=== PATIENT | male | born 1985 | race Caucasian/White ===

== ENCOUNTER → 2025-04-03 12:28 | Outpatient (CLI) | payer OTHER, SELFPAY ==
--- NOTE | 2025-04-03 12:34 | DI.RAD.S_ITS ---
PROCEDURE: XR KNEE RT 3V INDICATIONS: PAIN TECHNIQUE: 3 views of the knee were acquired. COMPARISON: None. FINDINGS: Bones: No fractures or dislocations. No suspicious bony lesions. Small osteophytes at the patellofemoral compartment. Large suprapatellar enthesophyte. Soft tissues: No joint effusion. No suspicious soft tissue calcifications. IMPRESSION: No acute bony abnormality or significant effusion. Suprapatellar enthesophytes. 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 Approved by: Yue Coyle M.D.,Ph.D. on 04/04/2025 at 1:31
--- NOTE | 2025-04-03 12:34 | DI.RAD.S_ITS ---
PROCEDURE: XR KNEE LT 3V INDICATIONS: PAIN TECHNIQUE: 3 views of the knee were acquired. COMPARISON: None. FINDINGS: Bones: No fractures or dislocations. No suspicious bony lesions. Small osteophytes in the patellofemoral compartment. Superior patellar enthesophytes. Soft tissues: No joint effusion. No suspicious soft tissue calcifications. IMPRESSION: No acute bony abnormality or significant effusion. Suprapatellar enthesophytes. Mild degenerative changes of the patellofemoral compartment. Approved by: Yue Coyle M.D.,Ph.D. on 04/04/2025 at 1:29
== END ==
LOC: RAD 12:31
PROVIDERS: Referring Provider Chiropractor; Visit Provider Chiropractor
DX: M13.861 Other specified arthritis, right knee (principal); M13.862 Other specified arthritis, left knee; M25.762 Osteophyte, left knee; M25.761 Osteophyte, right knee
CPT/HCPCS: 73562